=== PATIENT | female | born 1945 | race Caucasian/White ===

== ENCOUNTER 2022-08-13 07:51 | Outpatient (CLI) | payer MEDICARE, BC, SELFPAY ==
--- NOTE | 2022-08-13 09:11 | W.ANESCHARGE ---
Anesthesia Charges Start Date/Time Anesthesia Start Date: 08/13/22 Anesthesia Start Time: 09:35 Stop Date/Time Anesthesia Stop Date: 08/13/22 Anesthesia Stop Time: 10:10 Summary Extremes of Age - Over 70 or under 1: MDA
--- NOTE | 2022-08-13 10:16 | W.ANESCHARGE ---
Anesthesia Charges Start Date/Time Anesthesia Start Date: 08/13/22 Anesthesia Start Time: 09:35 Stop Date/Time Anesthesia Stop Date: 08/13/22 Anesthesia Stop Time: 10:10
== END 2022-08-13 07:52 | disposition home or self-care (01) ==
PROVIDERS: PCP Family Medicine; Visit Provider Internal Medicine Gastroenterology
DX: Z12.11 Encounter for screening for malignant neoplasm of colon (principal); K63.5 Polyp of colon; K57.30 Diverticulosis of large intestine without perforation or abscess without bleeding; Z86.010 Personal history of colon polyps
CPT/HCPCS: 00811; 45380; 45385; 88305; 99100; J2704